=== PATIENT | female | born 1975 | race Caucasian/White ===

== ENCOUNTER 2022-09-20 10:29 | Outpatient (CLI) | payer OTHER, SELFPAY ==
[2022-09-20 11:27] LABS: Hematocrit 45.3 % (37.0-47.0); Hemoglobin 14.8 g/dL (12.0-15.0)
== END 2022-09-20 10:30 | disposition home or self-care (01) ==
LOC: ANHSURGERY 10:44
PROVIDERS: Visit Provider Obstetrics & Gynecology
DX: R10.2 Pelvic and perineal pain (principal); Z01.818 Encounter for other preprocedural examination
CPT/HCPCS: 36415; 85014; 85018; 86850; 86900; 86901

== ENCOUNTER 2022-09-21 01:10 | Day surgery (SDC) | payer OTHER, SELFPAY ==
--- NOTE | 2022-09-18 07:38 | P.HP_ITS ---
H&P: HPI History of Present Illness Date/Time: 09/18/22 07:38 Chief Complaint: Pelvic pain/bleeding Narrative: This is a 47-year-old female with pelvic pain and findings on ultrasound with a thickened area in her uterus. She will undergo diagnostic laparoscopy with hysteroscopy/dilatation curettage/polypectomy if present. Risks and benefits were reviewed including but not exclusive of , aspiration pneumonia, bleeding, transfusion, perforation injury to bowel, bladder, ureters, or other internal organs with need for open laparotomy. She received the [facility] handouts entitled laparoscopy, hysteroscopy, dilatation curettage, respectively. She had all questions answered and asked to proceed Exam Const: General: cooperative, healthy appearing and comfortable Nutritional Appearance: average body habitus Orientation/consciousness: oriented to p erson, oriented to place and oriented to time Resp: Effort & Inspection: normal respiratory effort Cardio: Rate: regular rate Rhythm: regular rhythm Heart sounds: S1 normal heart sound present and S2 normal heart sound present GI: Inspection: normal to inspection : Speculum Exam - Vagina: normal appearance of the vagina Speculum Exam - Cervix: normal appearance of the cervix Bimanual exam- vagina & uterus: enlarged Bimanual Exam- Adnexa, other: normal adnexae Assessment and Plan Assessment and plan (1) Pelvic pain: Code(s): R10.2 - Pelvic and perineal pain Status: Acute (2) Excessive bleeding: Code(s): R58 - Hemorrhage, not elsewhere classified Status: Acute Plan Diagnostic laparoscopy/hysteroscopy/dilatation and curettage with possible polypectomy
[2022-09-18 12:52] VITALS: BMI 36.6
--- NOTE | 2022-09-18 13:02 | PC.NURSE ---
Report to the Outpatient Waiting Room, entrance under the green pavilion located off [facility], at time 9:00 on date 09/21/22. Planned Procedure Time: 11:00. Time changes happen often and if your time is changed the preop area will call you the afternoon before. - You and your visitor will be asked to self-screen and do not enter if you have any COVID symptoms. - We encourage only one visitor and NO visitors under age 16 are allowed at this time. Your visitor will receive communication by the phone number that is given day of service. - The patient visitor is requested to social distance or may leave the building when not with patient due to restrictions. - A mask is OPTIONAL within the hospital. Patients may have clear liquids (water, carbonated beverages, clear teas, apple juice) until 3 hours prior to surgery (8:00) with a maximum of 20 ounces. - No food from midnight until time of surgery Take the following medications with a SIP of water the morning of surgery: [id number] Medications to discontinue per physician: N/A Date to take last dose: N/A Please no make-up, nail sinhala, hairspray, perfume, deodorant, or body powder the day of surgery. No jewelry (including any body piercings) or valuables the day of surgery, leave them at home. Please take a shower or bath the night before, or the morning of, surgery with an antibacterial soap. Wear comfortable, loose fitting clothing. - Jewelry must be removed prior to entering the operating room. Rings and piercings that are not removed may be cut off. - The hospital will not accept responsibility for valuables. - Please leave all valuables, including medications, at home the day of surgery. If you are going home after surgery, a licensed commercial collections driver must drive you home. - NO public transportation without another adult. - We recommend that an adult stay with you for 24 hours following discharge. - We also recommend that you do not drive, make important decision, drink alcoholic beverages, or take any drugs that were not prescribed by your health care provider for at least 24 hours after your discharge time. Follow any additional instructions given to you from your surgeon. If you or anyone in your household have experienced Covid symptoms in the past week, please notify your surgeon or the nurse liaison at the phone number below for possible testing. Telephone instructions given to PT - [employer]BER and asked if any additional questions and then verbalized understanding. Patient advised to call surgeon office or pre surgery nurse liaison [phone] if any additional questions.
[2022-09-21] VITALS (9 sets, daily range): BP systolic 105–153; BP diastolic 58–85; PULSE 65–89; RESP 10–20; TEMP 36.1–36.2; O2SAT 96–100; BMI 36.6
--- NOTE | 2022-09-21 06:07 | WPDHPUPDATE1 ---
History and Physical Update Update Date/Time: 09/21/22 06:07 History and Physical has been reviewed, including an updated exam of the patient. There are NO changes in the patient's condition. Risks, benefits, and alternatives have been discussed and questions answered. Patient agrees to proceed with procedure.
--- NOTE | 2022-09-21 10:16 | P.PNAN_ITS ---
Anes - Initial Pre Proc Eval Procedure: Operation Date: 09/21/22 11:00 Proposed Procedures p Diagnostic Laparoscopy, Hysteroscopy. Dilatation and Curettage with Polypectomy - Cesario Sauceda MD Date/Time: 09/21/22 10:16 Surgeon: Cesario Sauceda MD Pre Op Diagnosis: pelvic pain, uterine polyp Patient Data Age: 47 Gender: F Height: 1.65 m Weight: 99.79 kg Allergies Allergy/AdvReac Type Severity Reaction Status Date / Time Penicillins Allergy Unknown Verified 09/21/22 10:10 Home Medications Medication Instructions Recorded Confirmed Type atomoxetine 40 mg capsule 40 mg PO DAILY 09/18/22 09/18/22 History vilazodone 40 mg tablet 40 mg PO DAILY 09/18/22 09/18/22 History hydrocodone 5 mg-acetaminophen 325 1 tablet PO Q4H PRN pain #30 tabs 09/21/22 Rx mg tablet Patient hx anesthesia problems: none Family hx anesthesia problems: none Results Review: All pre-operative results and documents have been reviewed as part of the pre- operative evaluation. [facility] Past Medical History Medical History ADHD Anxiety Asthma Cerebral aneurysm Depression Social History Social History Smoking packs per day: 0.5 Smoking cigarettes per day: 10.0 Years smoked: 10 Smoking pack-years: 5.00 Smoking status: Current every day smoker Tobacco type: cigarettes Alcohol intake: current Alcohol use details: RARE Substance use: current Substance use type: marijuana Living arrangements: alone Spiritual care concerns: No Anes - Eval Final PreProcedure Day of Procedure 09/21/22 10:16 Patient weight: obese Heart: regular rate and rhythm Lungs: decreased breath sounds Airway: Mallampati scale class II Neurological: alert and oriented Last oral intake: >/= 8 hours ASA classification: III Emergent: no Anesthetic plan: proceed Anesthesia type and monitoring: general ETT and standard monitoring Results Review: All pre-operative results and documents have been reviewed as part of the pre- operative evaluation. Informed Consent: The patient's anesthetic plan and its attendant risks and benefits were discussed with the patient/family/POA. Questions were solicited and answers provided to the satisfaction of the patient/family/POA.
[2022-09-21] MEDS: SCOPOLAMINE 1.5 MG PATCH TRANSDERM (10:33)
[2022-09-21] MEDS: ACETAMINOPHEN 500 MG TABLET 1000 MG PO (10:35)
[2022-09-21] MEDS: LACTATED RINGERS 1,000 ML 30 ML IV CONT ×2 (10:40→12:30)
[2022-09-21] MEDS: KETOROLAC 15 MG/ML VIAL (*BKC) IV PUSH (10:41)
--- NOTE | 2022-09-21 12:20 | W.PM.PROC2 ---
Procedure Note - Detailed Date of Procedure 09/21/22 Pre-op Diagnosis pelvic pain, uterine polyp Post-op Diagnosis Same (Pelvic pain/ bleeding/ pelvic adhesions /endometriosis) Procedure Performed laparoscopy /extensive lysis of/ destruction endometrial /hysteroscopy/ dilatation and curettage Surgeon Cesario Sauceda MD Anesthesia General Indications / 47-year-old female with a suspected polyp pelvic pain. Findings The left adnexa was completely obliterated with scar tissue. The right ovary and tube appeared within limits. The uterus was markedly adherent to the left side and had 0 mobility pre operatively and% mobility postop. Small area of endometriosis seen left uterosacral ligament which was cauterized with monopolar cautery. Description of Procedure The patient was prepped draped normal sterile fashion placed in dorsal lithotomy position. Under excellent general trach anesthesia weighted speculum placed in posterior fornix vagina. Anterior lip of the cervix grasped with a single-tooth tenaculum. The Mario's cannula was inserted and attached to the single-tooth to be used later for uterine manipulation. After emptying the bladder of clear urine the weighted speculum was removed. Gloves were changed A supraumbilical incision made the Veress needle passed in the abdomen. Abdomen filled with CO2 gas to 15mm Hg. The 5mm trocar advanced under direct visualization assuring no injury. The patient placed in Trendelenburg and a suprapubic incision made. 5mm trocar advanced under direct visualization assuring no injury. Multiple adhesions were seen and it was deemed important to have a 3rd arm show a left lower quadrant incision and the 5mm trocar advanced under direct visualization. The right ovary and tube appeared within normal limits uterus was markedly adherent and retroverted secondary to the adhesions posteriorly and to the left. Using sharp dissection with the tugging pulling method and slowly snipping the colonic epiploica away from the left adnexa this was eventually cleared irrigation was undertaken until clear and mobility was seen. Two small powder burn endometriosis areas were seen the cul-de-sac along the uterosacral ligament these were cauterized at 35 w per 2nd. Irrigation undertaken until clear. At that point was not felt that any further procedure would be helpful as uterus was very mobile and free of adhesions. Irrigation undertaken until completely clear. Lower site removed. The gas removed from the abdomen. The upper site removed and the incisions closed with 4 Monocryl glue. Attention was turned to the hysteroscopic portion procedure. Uterus sounded to7.5cm. Serial dilatation with fragmented dilators performed followed passes of the visualizing hysteroscope using normal saline as visualizing medium. Thick irregular tissue was seen but no evidence of polyp. There were some clots which probably accounted for the findings on the imaging. The uterus was then scraped over the entire 360? until good grating sound was heard. The instruments withdrawn the patient was awakened. She went to recovery in satisfactory condition. All sponge, needle, instrument counts were correct. There were no immediate complications Estimated Blood Loss 5 Drains No Packing No Pathology Yes Complications No immediate complications Condition Stable Disposition PACU
[2022-09-21] MEDS: fentaNYL CITRATE INJ (*CRX) 100 MCG/2 ML VIAL 25 MCG IV PUSH ×8 (12:38→13:24)
--- NOTE | 2022-09-21 12:59 | SUR.PHASEI ---
1256: Simple mask removed.
[2022-09-21] MEDS: oxyCODONE HCL (*CRX) 5 MG TAB IR PO (13:45)
== END 2022-09-21 14:54 | disposition home or self-care (01) ==
PROVIDERS: Visit Provider Obstetrics & Gynecology
PROC: 0UDB8ZZ Extraction of Endometrium, Via Natural or Artificial Opening Endoscopic (ICD-10-PCS; CPT 58558; principal; 2022-09-21 11:00)
DX: R10.2 Pelvic and perineal pain (principal); N73.6 Female pelvic peritoneal adhesions (postinfective); N80.3C2 Endometriosis of the left uterosacral ligament, unspecified depth; N93.9 Abnormal uterine and vaginal bleeding, unspecified; F90.9 Attention-deficit hyperactivity disorder, unspecified type; F32.A Depression, unspecified; F41.9 Anxiety disorder, unspecified; F17.210 Nicotine dependence, cigarettes, uncomplicated; E66.9 Obesity, unspecified; Z68.36 Body mass index [BMI] 36.0-36.9, adult
CPT/HCPCS: 58662; 58558; 36415; 85014; 85018; 86850; 86900; 86901; 88305; A9270; J1100; J1885; J2250; J2405; J2704; J2710; J3010; J7030; J7120

== ENCOUNTER 2022-12-20 19:26 | Emergency (ER) | payer OTHER, SELFPAY ==
--- NOTE | ~2022-12-20 | CT_ITS ---
EXAMINATION: CT brain wo con DATE: 12/20/2022 19:49 INDICATION: Headache. TECHNIQUE: Computed tomography (CT) of the head was performed without intravenous contrast. The mA wa s adjusted according to patient size. Iterative reconstruction technique was employed. The dose-lengt h product was 605.33 mGy-cm. COMPARISON: None FINDINGS: There is no intracranial hemorrhage, acute infarction, or abnormal intracranial mass lesion . The ventricles are normal in size. The orbits are normal. There is mild mucosal thickening in the e thmoid sinuses. The mastoid air cells are normal. IMPRESSION: 1. Normal brain. Reviewed, dictated and finalized at location A. HYSICAL PROSPECTING SURVEYOR IMPRESSION: 1. Normal brain.
--- NOTE | ~2022-12-20 | CT_ITS ---
CT ANGIOGRAM NECK AND HEAD History: Headache, aneurysm. Technique: Serial spiral axial images through the head and neck were obtained during arterial phase I V injection of 100 cc of Omnipaque 350. 3-D postprocessing and MIP images were then reconstructed on the remote workstation. Dose reduction technique was used on this scan by utilizing automated exposur e control and iterative reconstruction technique. The dose-length product (DLP) was 1122.52 mGy-cm. CTA neck findings: Bilateral vertebral arteries are patent. Bile common carotid, internal carotid, a nd external carotid arteries are patent. The proximal right internal carotid artery demonstrates 0% s tenosis relative to the normal distal artery lumen diameter. The proximal left internal carotid arter y demonstrates 0% stenosis relative to the normal distal artery lumen diameter. No aneurysm identifie d. CTA head findings: Distal vertebral arteries, basilar artery, and posterior cerebral arteries are pat ent. Distal internal carotid arteries, middle cerebral arteries, and anterior cerebral arteries are p atent. No large vessel occlusion. No stenosis or aneurysm seen. Impression: Unremarkable exam. No aneurysm identified. Reviewed, dictated and finalized at location M. [facility] [employer] Impression: Unremarkable exam. No aneurysm identified.
[2022-12-20 19:32] VITALS: BP 175/95; PULSE 120; RESP 22; TEMP 36.7; O2SAT 96
[2022-12-20 21:54] VITALS: BP 130/82; PULSE 103; RESP 18; TEMP 36.7; O2SAT 95
[2022-12-20 23:55] LABS: Basophils Absolute Auto 0.1 K/mm3 (0.0-0.1); Basophils Percent Auto 0.7 % (0.2-1.2); Eosinophils Absolute Auto 0.4 K/mm3 (0-0.3); Eosinophils Percent Auto 2.5 % (0-4.4); Hematocrit 44.8 % (37.0-47.0); Hemoglobin 15.1 g/dL (12.0-15.0); Immature Granulocyte Absolute 0.05 K/mm3 (0.00-0.031); Immature Granulocyte Percent A 0.3 % (0-0.5); Lymphocytes Absolute Auto 4.72 K/mm3 (0.9-3.2); Lymphocytes Percent Auto 32.8 % (18.3-44.2); Mean Corpuscular HGB Conc 33.7 g/dl (32-36); Mean Corpuscular Hemoglobin 30.1 pg (26-34); Mean Corpuscular Volume 89.4 fl (80-100); Mean Platelet Volume 8.2 fl (7.4-10.4); Monocytes Absolute Auto 0.9 K/mm3 (0.1-0.6); Monocytes Percent Auto 5.9 % (2.6-8.5); Neutrophils Absolute Auto 8.3 K/mm3 (1.3-6.7); Neutrophils Percent Auto 57.8 % (45.5-73.1); Platelet Count Result 450 k/mm3 (150-375); Red Blood Count 5.01 M/mm3 (4.2-5.4); Red Cell Distribution Width 12.7 % (11.5-14.5); White Blood Count 14.4 K/mm3 (4.5-10.0)
[2022-12-21] MEDS: diphenhydrAMINE HCl INJ 50 MG/ML VIAL 25 MG IV PUSH (00:05)
[2022-12-21] MEDS: METOCLOPRAMIDE HCL INJ 10 MG/2 ML VIAL IV PUSH (00:05)
[2022-12-21 00:10] LABS: Anion Gap 8 mmol/L (8-16); Blood Urea Nitrogen 9 mg/dL (7-17); Carbon Dioxide 28 mmol/L (22-30); Chloride 103 mmol/L (98-107); Estimated CRCL calculation 100 ml/min; Estimated Glomerular Filt Rate > 60; Glucose 112 mg/dL (65-110); Potassium 3.4 mmol/L (3.4-5.0); Sodium 139 mmol/L (137-145)
--- NOTE | 2022-12-21 01:28 | ED.HA ---
HPI - Headache General Chief Complaint: Headache Stated Complaint: I think I am having an aneurysm Time Seen by Provider: 12/20/22 23:38 History of Present Illness HPI Narrative: Patient has had a history of a aneurysm 6 years ago presents because she is extremely anxious and stressed and states that she has been having a headache and is worried that she has another aneurysm. She states that she has a feeling of tingling all over her body especially in her hands, feet, and face. Related Data Home Medications Medication Instructions Recorded Confirmed atomoxetine 40 mg capsule 40 mg PO DAILY 09/18/22 09/18/22 vilazodone 40 mg tablet 40 mg PO DAILY 09/18/22 09/18/22 Allergies Allergy/AdvReac Type Severity Reaction Status Date / Time Penicillins Allergy Unknown Verified 09/21/22 10:10 Review of Systems Review of Systems: CONST: No fever. HEENT: No sore throat C/V: No chest pain RESP: No cough GI: No abdominal : No dysuria. M/S: No joint pain. SKIN: No rash. NEURO: Headache with tingling in hands, feet, face PSYCH: Anxiety PMFSH Past Medical History Medical History ADHD Anxiety Asthma Cerebral aneurysm Depression Social History Social History Smoking packs per day: 0.5 Smoking cigarettes per day: 10.0 Years smoked: 10 Smoking pack-years: 5.00 Smoking status: Current every day smoker Tobacco type: cigarettes Alcohol intake: current Alcohol use details: RARE Substance use: current Substance use type: marijuana Living arrangements: alone Spiritual care concerns: No Exam Narrative: EXAMINATION OF ORGAN SYSTEMS/BODY AREAS: Constitutional: Vital signs per nursing GENERAL:[No acute distress, non-toxic appearing.] HEAD: Normal with no signs of head trauma. EYES: EOMI, conjunctiva normal, PERRL ENT: Hearing grossly intact LUNGS: Nonlabored breathing. HEART: Tachycardic ABD: [Soft], [nontender to palpation] EXT: Normal range of motion SKIN: [No rashes or lesions.] NEURO: [Alert and oriented x 3. Strength intact upper and lower extremities, no focal sensory deficits, CN II to XII intact.] PSYCH: Anxious affect Course Vital Signs Vital signs: Vital Signs Temperature 98.0 F 12/20/22 19:32 Pulse Rate 120 H 12/20/22 19:32 Respiratory Rate 22 H 12/20/22 19:32 Blood Pressure 175/95 H 12/20/22 19:32 Pulse Oximetry 96 12/20/22 19:32 Oxygen Delivery Room Air 12/20/22 19:32 Temperature 98.1 F 12/20/22 21:54 Pulse Rate 80 12/21/22 01:30 Respiratory Rate 17 12/21/22 01:30 Blood Pressure 123/72 12/21/22 01:30 Pulse Oximetry 93 12/21/22 01:30 Oxygen Delivery Room Air 12/20/22 19:32 MDM - Headache MDM Narrative Medical decision making narrative: 47yoF presents to the emergency department for headache. Patient is hemodynamically stable. No focal neurological or cranial nerve deficits on exam. No meningeal signs. The headache was gradual in onset, it is not exertional and does not appear consistent with subarachnoid hemorrhage or intracranial bleeding. No trauma. Patient is given headache cocktail including Reglan, Benadryl. Given her prior history I did obtain a CT head and CTA. On reevaluation, the patient feels significantly better with the headache resolved. No neurological deficits. Imaging is normal. Patient is comfortable going home for outpatient follow-up with primary care physician and/or neurology and provided with strict return precautions, especially for worsening headaches, neck pain/stiffness, fever or weakness, numbness/tingling or persistent vomiting. Lab Data 12/20/22 23:45 12/20/22 23:45 Labs: Lab Results 12/20/22 12/20/22 Range/Units 23:45 23:45 WBC 14.4 H (4.5-10.0) K/mm3 RBC 5.01 (4.2-5.4) M/mm3 Hgb 15.1 H (12.0-15.0) g/dL Hct 44.8 (37.0-47.0) % MCV 89.4 (80-10
[2022-12-21 01:30] VITALS: BP 123/72; PULSE 80; RESP 17; O2SAT 93
== END 2022-12-21 01:39 | disposition home or self-care (01) ==
PROVIDERS: Emergency Provider Emergency Medicine; PCP Emergency Medicine
DX: R51.9 Headache, unspecified (principal); J45.909 Unspecified asthma, uncomplicated; F90.9 Attention-deficit hyperactivity disorder, unspecified type; F32.A Depression, unspecified; F41.9 Anxiety disorder, unspecified; F17.210 Nicotine dependence, cigarettes, uncomplicated
CPT/HCPCS: 36415; 70450; 70496; 70498; 80048; 85025; 96374; 96375; 99284; J1200; J2765; Q9967